=== PATIENT | male | born 1955 | race Asian ===

== ENCOUNTER 2017-04-17 23:50 | Inpatient (IN) | payer MEDICAID ==
[~2017-04-17] VITALS: Ht 170.2 cm; Wt 64.4 kg
[2017-04-18 01:46] LABS: Hematocrit 37.2 % (41.0-53.0); Hemoglobin 12.4 g/dL (13.5-17.5); Mean Corpuscular Hemoglobin 28.6 pg (28.0-32.0); Mean Corpuscular Hgb Conc. 33.4 g/dL (32.0-36.0); Mean Corpuscular Volume 85.5 fL (80.0-100.0); Mean Platelet Volume 7.6 fL (6.9-10.8); Platelet Count (auto) 189 10^3/uL (140-450); Red Cell Distribution Width 14.4 % (11.8-14.3); White Blood Cell 2.3 10^3/uL (4.4-10.8)
[2017-04-18 02:02] LABS: Albumin 2.8 g/dL (3.4-5.0); Anion Gap 6 (5-15); Aspartate Aminotransferase 30 U/L (15-37); BUN/Creatinine Ratio 27.3; Blood Urea Nitrogen 59 mg/dL (7-18); Calcium 12.9 mg/dL (8.5-10.1); Carbon Dioxide 27 mmol/L (21-32); Chloride 98 mmol/L (98-107); GFR African American 40 mL/min; GFR Non-African American 33 mL/min; Glucose 152 mg/dL (74-106); Potassium 3.8 mmol/L (3.5-5.1); Sodium 131 mmol/L (136-145)
[2017-04-18 02:04] LABS: Metamyelocytes % 0; Promyelocytes % 0; Reactive Lymphocytes 0
[2017-04-18 02:07] LABS: Alkaline Phosphatase 78 U/L (45-117); Bilirubin, Total 0.5 mg/dL (0.2-1.0); Total Protein 5.8 g/dL (6.4-8.2)
[2017-04-18] MEDS ORDERED: ONDANSETRON HCL 4 MG/2 ML VIAL IV ONE (02:15)
[2017-04-18] MEDS ORDERED: SODIUM CHLORIDE 0.9% 1,000 ML IV ONE (02:15)
[2017-04-18 02:38] LABS: Urine Bilirubin Negative (Negative); Urine Blood 1+ /uL (Negative); Urine Color Yellow (Yellow); Urine Glucose Normal (Normal); Urine Ketone Negative (Negative); Urine Nitrite Negative (Negative); Urine RBC <1 /hpf (0 - 3); Urine Urobilinogen Normal (Negative); Urine pH 5.5 (5.0-8.0)
[2017-04-18 02:58] LABS: Myelocytes % 2; Platelet Estimate Adequate; RBC Morphology Normal
[2017-04-18] MEDS ORDERED: HYDROcodone-ACET 5/325MG TAB PO PRN (05:45)
[2017-04-18] MEDS ORDERED: DEXTROSE (50%) 50ML SYRG IV PRN (05:45)
[2017-04-18] MEDS: SODIUM CHLORIDE 0.9% 1,000 ML IV SCH (05:45)
[2017-04-18] MEDS ORDERED: ONDANSETRON HCL 4 MG/2 ML VIAL IV PRN (05:45)
[2017-04-18] MEDS ORDERED: TEMAZEPAM 15 MG CAP PO PRN (05:45)
[2017-04-18] MEDS ORDERED: ACETAMINOPHEN 325 MG TAB PO PRN (05:45)
[2017-04-18] MEDS: InsuLIN REG 1unit/0.01ml Soln (100units/ml) SC SCH ×3 (06:00→18:07)
[2017-04-18] MEDS: ACCU-CHEK COMFORT CURVE STRIP VI SCH ×3 (06:00→18:07)
[2017-04-18 12:00] VITALS: BP 119/85
[2017-04-18] MEDS ORDERED: PNEUMOCOCCAL VACC POLYS 25 MCG/0.5 ML VIAL IM ONE (12:30)
[2017-04-18] MEDS ORDERED: INFLUENZA QUAD 2017-2018 0.5 ML SYRG IM ONE (12:30)
[2017-04-18 12:55] VITALS: BP 124/78
[2017-04-18 14:27] LABS: INR 1.01 (0.9-1.15)
[2017-04-18] MEDS: PANTOPRAZOLE 40 MG TAB PO SCH (14:58)
[2017-04-18] MEDS: ENOXAPARIN SOD 40 MG/0.4 ML SYRINGE SC SCH (14:59)
[2017-04-18 17:00] VITALS: BP 127/75
[2017-04-18 22:00] VITALS: BP 115/69
[2017-04-19] MEDS: ACCU-CHEK COMFORT CURVE STRIP VI SCH ×5 (00:10→23:37)
[2017-04-19 05:00] VITALS: BP 129/84
[2017-04-19] MEDS: SODIUM CHLORIDE 0.9% 1,000 ML IV SCH ×2 (05:16→08:53)
[2017-04-19] MEDS: HYDROmorphone HCL 2 MG/ML VL IV PRN ×2 (05:25→15:25)
[2017-04-19] MEDS: InsuLIN REG 1unit/0.01ml Soln (100units/ml) SC SCH ×5 (05:49→23:37)
[2017-04-19 06:44] LABS: Hematocrit 33.2 % (41.0-53.0); Hemoglobin 11.4 g/dL (13.5-17.5); Mean Corpuscular Hemoglobin 29.4 pg (28.0-32.0); Mean Corpuscular Hgb Conc. 34.4 g/dL (32.0-36.0); Mean Corpuscular Volume 85.5 fL (80.0-100.0); Mean Platelet Volume 7.6 fL (6.9-10.8); Platelet Count (auto) 188 10^3/uL (140-450); Red Cell Distribution Width 14.2 % (11.8-14.3); White Blood Cell 3.6 10^3/uL (4.4-10.8)
[2017-04-19 06:51] LABS: Albumin 2.3 g/dL (3.4-5.0); Calcium 11.7 mg/dL (8.5-10.1); Potassium 3.9 mmol/L (3.5-5.1)
[2017-04-19 06:53] LABS: Bilirubin, Total 0.5 mg/dL (0.2-1.0); Metamyelocytes % 0; Myelocytes % 0; Promyelocytes % 0; Reactive Lymphocytes 0
[2017-04-19 08:00] VITALS: BP 115/74
[2017-04-19 09:00] VITALS: BP 115/74
[2017-04-19] MEDS: PANTOPRAZOLE 40 MG TAB PO SCH (10:12)
[2017-04-19] MEDS: ENOXAPARIN SOD 40 MG/0.4 ML SYRINGE SC SCH (10:12)
[2017-04-19 12:46] LABS: Platelet Estimate Adequate
[2017-04-19 13:00] VITALS: BP 133/78
[2017-04-19 17:00] VITALS: BP 133/77
[2017-04-19] MEDS: Boost Glucose Control 8 Ounces PO SCH (22:00)
[2017-04-19 22:16] VITALS: BP 137/75
[2017-04-19] MEDS ORDERED: CLOP75TA28 PO (23:38)
[2017-04-20 05:28] VITALS: BP 124/76
[2017-04-20] MEDS: HYDROmorphone HCL 2 MG/ML VL IV PRN ×2 (05:35→16:16)
[2017-04-20] MEDS: InsuLIN REG 1unit/0.01ml Soln (100units/ml) SC SCH ×3 (05:35→18:00)
[2017-04-20] MEDS: SODIUM CHLORIDE 0.9% 1,000 ML IV SCH ×2 (05:35→11:23)
[2017-04-20] MEDS: ACCU-CHEK COMFORT CURVE STRIP VI SCH ×3 (05:35→18:22)
[2017-04-20 05:51] LABS: Hematocrit 33.7 % (41.0-53.0); Hemoglobin 11.3 g/dL (13.5-17.5); Mean Corpuscular Hemoglobin 28.5 pg (28.0-32.0); Mean Corpuscular Hgb Conc. 33.5 g/dL (32.0-36.0); Mean Corpuscular Volume 85.2 fL (80.0-100.0); Mean Platelet Volume 6.9 fL (6.9-10.8); Platelet Count (auto) 194 10^3/uL (140-450); Red Cell Distribution Width 14.5 % (11.8-14.3); White Blood Cell 3.7 10^3/uL (4.4-10.8)
[2017-04-20 05:57] LABS: Metamyelocytes % 0; Myelocytes % 0; Promyelocytes % 0; Reactive Lymphocytes 0
[2017-04-20 06:04] LABS: INR 0.99 (0.9-1.15); Prothrombin Time 10.8 sec (9.37-12.3)
[2017-04-20 06:19] LABS: Albumin 2.4 g/dL (3.4-5.0); BUN/Creatinine Ratio 24.3; Bilirubin, Total 0.5 mg/dL (0.2-1.0); Calcium 12.1 mg/dL (8.5-10.1); Magnesium 2.1 mg/dL (1.6-2.6); Total Protein 5.4 g/dL (6.4-8.2)
[2017-04-20 08:00] VITALS: BP 129/80
[2017-04-20 08:22] LABS: Large Platelets FEW; Platelet Estimate Adequate
[2017-04-20 09:00] VITALS: BP 129/80
[2017-04-20] MEDS: Boost Glucose Control 8 Ounces PO SCH ×2 (10:00→21:59)
[2017-04-20] MEDS: PANTOPRAZOLE 40 MG TAB PO SCH (11:23)
[2017-04-20] MEDS: ENOXAPARIN SOD 40 MG/0.4 ML SYRINGE SC SCH (11:23)
[2017-04-20 13:00] VITALS: BP 125/78
[2017-04-20 17:00] VITALS: BP 125/81
[2017-04-20 21:25] VITALS: BP 129/80
[2017-04-21] MEDS: ACCU-CHEK COMFORT CURVE STRIP VI SCH ×5 (00:12→23:51)
[2017-04-21] MEDS: HYDROmorphone HCL 2 MG/ML VL IV PRN ×2 (03:27→16:08)
[2017-04-21 05:00] VITALS: BP 131/79
[2017-04-21] MEDS: InsuLIN REG 1unit/0.01ml Soln (100units/ml) SC SCH ×5 (05:44→23:51)
[2017-04-21 06:10] LABS: INR 0.98 (0.9-1.15); Prothrombin Time 10.7 sec (9.37-12.3)
[2017-04-21 06:18] LABS: Hematocrit 32.4 % (41.0-53.0); Hemoglobin 11.2 g/dL (13.5-17.5); Mean Corpuscular Hemoglobin 29.2 pg (28.0-32.0); Mean Corpuscular Hgb Conc. 34.5 g/dL (32.0-36.0); Mean Corpuscular Volume 84.7 fL (80.0-100.0); Mean Platelet Volume 7.5 fL (6.9-10.8); Platelet Count (auto) 197 10^3/uL (140-450); Red Cell Distribution Width 14.8 % (11.8-14.3); White Blood Cell 2.2 10^3/uL (4.4-10.8)
[2017-04-21 06:30] LABS: Metamyelocytes % 0; Myelocytes % 0; Promyelocytes % 0; Reactive Lymphocytes 0
[2017-04-21 06:36] LABS: Albumin 2.4 g/dL (3.4-5.0); BUN/Creatinine Ratio 21.8; Bilirubin, Total 0.4 mg/dL (0.2-1.0); Magnesium 2.1 mg/dL (1.6-2.6); Potassium 3.8 mmol/L (3.5-5.1); Total Protein 5.4 g/dL (6.4-8.2)
[2017-04-21 07:57] LABS: Platelet Estimate Adequate
[2017-04-21 08:00] VITALS: BP 134/87
[2017-04-21 09:00] VITALS: BP 134/87
[2017-04-21] MEDS: ENOXAPARIN SOD 40 MG/0.4 ML SYRINGE SC SCH (10:00)
[2017-04-21] MEDS: Boost Glucose Control 8 Ounces PO SCH ×2 (10:00→22:29)
[2017-04-21] MEDS ORDERED: DIPHENOXYLATE W/ATROPINE 2.5 MG TAB PO PRN (10:45)
[2017-04-21] MEDS: SODIUM CHLORIDE 0.9% 1,000 ML IV SCH ×2 (10:56→13:53)
[2017-04-21] MEDS: PANTOPRAZOLE 40 MG TAB PO SCH (10:56)
[2017-04-21 13:00] VITALS: BP 139/89
[2017-04-21] MEDS ORDERED: HYDROmorphone HCL 2 MG/ML VL IV PRN (16:45)
[2017-04-21 17:00] VITALS: BP 138/86
[2017-04-21 22:00] VITALS: BP 119/75
[2017-04-22] MEDS: SODIUM CHLORIDE 0.9% 1,000 ML IV SCH ×2 (03:05→16:49)
[2017-04-22 05:00] VITALS: BP 128/83
[2017-04-22] MEDS: InsuLIN REG 1unit/0.01ml Soln (100units/ml) SC SCH ×3 (05:27→18:00)
[2017-04-22] MEDS: ACCU-CHEK COMFORT CURVE STRIP VI SCH ×3 (05:27→18:07)
[2017-04-22] MEDS: Boost Glucose Control 8 Ounces PO SCH ×2 (08:50→21:33)
[2017-04-22 09:00] VITALS: BP_SYST 123; BP_SYST 157; BP_DIAS 53; BP_DIAS 70
[2017-04-22] MEDS: ENOXAPARIN SOD 40 MG/0.4 ML SYRINGE SC SCH (10:00)
[2017-04-22] MEDS: PANTOPRAZOLE 40 MG TAB PO SCH (10:00)
[2017-04-22 14:56] VITALS: BP 128/75
[2017-04-22] MEDS: HYDROcodone-ACET 5/325MG TAB PO PRN ×2 (15:34→21:34)
[2017-04-22 17:36] VITALS: BP 122/76
[2017-04-22] MEDS ORDERED: ASPirin-EC 81 mg tab PO ONE (17:45)
[2017-04-22] MEDS: ATORVASTATIN 20 MG TAB PO SCH (21:33)
[2017-04-22 22:00] VITALS: BP 118/73
[2017-04-23] MEDS: ACCU-CHEK COMFORT CURVE STRIP VI SCH ×4 (00:23→18:40)
[2017-04-23] MEDS: HYDROcodone-ACET 5/325MG TAB PO PRN ×4 (03:52→22:10)
[2017-04-23] MEDS: InsuLIN REG 1unit/0.01ml Soln (100units/ml) SC SCH ×4 (06:00→18:40)
[2017-04-23 06:16] VITALS: BP 108/68
[2017-04-23 06:32] LABS: Cholesterol 160 mg/dL (< 200); HDL Cholesterol 27 mg/dL (40-59); LDL Cholesterol 109 mg/dL (< 100); Triglycerides 180 mg/dL (< 150)
[2017-04-23] MEDS: SODIUM CHLORIDE 0.9% 1,000 ML IV SCH ×2 (07:16→22:40)
[2017-04-23 08:06] VITALS: BP 108/68
[2017-04-23 09:00] VITALS: BP 107/69
[2017-04-23] MEDS: Boost Glucose Control 8 Ounces PO SCH ×2 (09:54→22:27)
[2017-04-23] MEDS: ENOXAPARIN SOD 40 MG/0.4 ML SYRINGE SC SCH (09:58)
[2017-04-23] MEDS: PANTOPRAZOLE 40 MG TAB PO SCH (09:59)
[2017-04-23] MEDS: ASPirin-EC 81 mg tab PO SCH (09:59)
[2017-04-23 13:00] VITALS: BP 108/68
[2017-04-23 17:00] VITALS: BP 123/71
[2017-04-23] MEDS: ATORVASTATIN 20 MG TAB PO SCH (22:27)
[2017-04-24] MEDS: ACCU-CHEK COMFORT CURVE STRIP VI SCH ×5 (00:08→23:20)
[2017-04-24] MEDS: HYDROcodone-ACET 5/325MG TAB PO PRN ×3 (04:40→23:21)
[2017-04-24] MEDS: InsuLIN REG 1unit/0.01ml Soln (100units/ml) SC SCH ×5 (05:57→23:20)
[2017-04-24] MEDS: SODIUM CHLORIDE 0.9% 1,000 ML IV SCH ×2 (08:59→21:17)
[2017-04-24 09:00] VITALS: BP 128/68
[2017-04-24] MEDS: ENOXAPARIN SOD 40 MG/0.4 ML SYRINGE SC SCH (10:00)
[2017-04-24] MEDS: PANTOPRAZOLE 40 MG TAB PO SCH (10:00)
[2017-04-24] MEDS: ASPirin-EC 81 mg tab PO SCH (10:00)
[2017-04-24] MEDS: Boost Glucose Control 8 Ounces PO SCH ×2 (10:00→21:17)
[2017-04-24 11:39] VITALS: BP 128/68
[2017-04-24 13:00] VITALS: BP 124/75
[2017-04-24 17:00] VITALS: BP 131/78
[2017-04-24] MEDS: ATORVASTATIN 20 MG TAB PO SCH (21:17)
[2017-04-24 21:30] VITALS: BP 138/82
[2017-04-25 05:00] VITALS: BP 129/81
[2017-04-25] MEDS: InsuLIN REG 1unit/0.01ml Soln (100units/ml) SC SCH ×4 (06:00→23:41)
[2017-04-25] MEDS: ACCU-CHEK COMFORT CURVE STRIP VI SCH ×3 (06:06→17:35)
[2017-04-25 08:00] VITALS: BP 119/77
[2017-04-25 09:00] VITALS: BP 119/77
[2017-04-25] MEDS: ASPirin-EC 81 mg tab PO SCH (09:26)
[2017-04-25] MEDS: ENOXAPARIN SOD 40 MG/0.4 ML SYRINGE SC SCH (09:26)
[2017-04-25] MEDS: PANTOPRAZOLE 40 MG TAB PO SCH (09:26)
[2017-04-25] MEDS: Boost Glucose Control 8 Ounces PO SCH (09:26)
[2017-04-25] MEDS: SODIUM CHLORIDE 0.9% 1,000 ML IV SCH (11:17)
[2017-04-25 13:00] VITALS: BP 124/76
[2017-04-25] MEDS: HYDROcodone-ACET 5/325MG TAB PO PRN (16:39)
[2017-04-25 17:00] VITALS: BP 146/85
[2017-04-25 22:00] VITALS: BP 129/85
[2017-04-26 05:00] VITALS: BP 142/82
[2017-04-26] MEDS: HYDROcodone-ACET 5/325MG TAB PO PRN ×3 (05:51→22:04)
[2017-04-26] MEDS: InsuLIN REG 1unit/0.01ml Soln (100units/ml) SC SCH ×4 (06:20→23:52)
[2017-04-26] MEDS: ACCU-CHEK COMFORT CURVE STRIP VI SCH ×5 (06:20→23:52)
[2017-04-26 08:50] VITALS: BP 130/83
[2017-04-26] MEDS: PANTOPRAZOLE 40 MG TAB PO SCH (09:25)
[2017-04-26] MEDS: ASPirin-EC 81 mg tab PO SCH (09:25)
[2017-04-26] MEDS: ENOXAPARIN SOD 40 MG/0.4 ML SYRINGE SC SCH (09:28)
[2017-04-26 13:08] VITALS: BP 132/81
[2017-04-26 16:58] VITALS: BP 138/84
[2017-04-26] MEDS: Boost Glucose Control 8 Ounces PO SCH (17:58)
[2017-04-26 22:05] VITALS: BP 129/83
[2017-04-27 04:30] VITALS: BP 136/82
[2017-04-27 05:24] LABS: Hematocrit 33.1 % (41.0-53.0); Hemoglobin 11.4 g/dL (13.5-17.5); Mean Corpuscular Hgb Conc. 34.4 g/dL (32.0-36.0); Mean Corpuscular Volume 84.4 fL (80.0-100.0); Mean Platelet Volume 7.1 fL (6.9-10.8); Platelet Count (auto) 284 10^3/uL (140-450); Red Cell Distribution Width 14.3 % (11.8-14.3); White Blood Cell 5.9 10^3/uL (4.4-10.8)
[2017-04-27 05:29] LABS: Metamyelocytes % 0; Myelocytes % 0; Promyelocytes % 0; Reactive Lymphocytes 0
[2017-04-27 05:49] LABS: Potassium 4.2 mmol/L (3.5-5.1)
[2017-04-27 06:00] LABS: Calcium 14.3 mg/dL (8.5-10.1)
[2017-04-27] MEDS: InsuLIN REG 1unit/0.01ml Soln (100units/ml) SC SCH ×3 (06:30→18:00)
[2017-04-27] MEDS: ACCU-CHEK COMFORT CURVE STRIP VI SCH ×3 (06:30→18:27)
[2017-04-27 06:57] LABS: Platelet Estimate Adequate
[2017-04-27] MEDS ORDERED: FUROSEMIDE 40 MG/4 ML VIAL IV ONE (07:00)
[2017-04-27] MEDS ORDERED: SODIUM CHLORIDE 0.9% 1,000 ML IV ONE ×2 (07:00→18:30)
[2017-04-27] MEDS ORDERED: PAMIDRONATE DISODIUM 90 MG in SOD CHL 0.45% 1,000 ML IV ONE ×3 (07:00→12:00)
[2017-04-27 10:09] VITALS: BP 148/81
[2017-04-27] MEDS: ASPirin-EC 81 mg tab PO SCH (10:42)
[2017-04-27] MEDS: ENOXAPARIN SOD 40 MG/0.4 ML SYRINGE SC SCH (10:42)
[2017-04-27] MEDS: Boost Glucose Control 8 Ounces PO SCH ×2 (10:42→18:26)
[2017-04-27] MEDS: PANTOPRAZOLE 40 MG TAB PO SCH (10:42)
[2017-04-27 11:58] VITALS: BP 151/90
[2017-04-27 16:34] VITALS: BP 138/95
[2017-04-27] MEDS ORDERED: FUROSEMIDE 20 MG/2 ML VIAL IV ONE (18:30)
[2017-04-27] MEDS: HYDROcodone-ACET 5/325MG TAB PO PRN (20:09)
[2017-04-27 22:21] VITALS: BP 131/90
[2017-04-28] MEDS: ACCU-CHEK COMFORT CURVE STRIP VI SCH ×4 (01:47→18:00)
[2017-04-28 04:40] VITALS: BP 128/77
[2017-04-28] MEDS: InsuLIN REG 1unit/0.01ml Soln (100units/ml) SC SCH ×4 (06:00→18:31)
[2017-04-28] MEDS: Boost Glucose Control 8 Ounces PO SCH ×2 (08:00→18:30)
[2017-04-28] MEDS: HYDROcodone-ACET 5/325MG TAB PO PRN ×2 (08:34→12:42)
[2017-04-28 09:21] VITALS: BP 151/72
[2017-04-28] MEDS: ASPirin-EC 81 mg tab PO SCH (10:32)
[2017-04-28] MEDS: PANTOPRAZOLE 40 MG TAB PO SCH (10:32)
[2017-04-28] MEDS: methylPREDNISolone SOD SUCC 125 MG/2 ML VL IV SCH ×2 (10:32→21:58)
[2017-04-28] MEDS: ENOXAPARIN SOD 40 MG/0.4 ML SYRINGE SC SCH (10:33)
[2017-04-28 12:39] VITALS: BP 125/83
[2017-04-28 16:36] VITALS: BP 119/78
[2017-04-28 22:00] VITALS: BP 131/79
[2017-04-29] MEDS: ACCU-CHEK COMFORT CURVE STRIP VI SCH ×5 (00:21→22:03)
[2017-04-29] MEDS: InsuLIN REG 1unit/0.01ml Soln (100units/ml) SC SCH ×5 (00:25→22:02)
[2017-04-29 05:00] VITALS: BP 139/92
[2017-04-29] MEDS: Boost Glucose Control 8 Ounces PO SCH ×2 (08:00→19:43)
[2017-04-29 08:36] LABS: Basophils # (auto) 0 uL; Basophils % (auto) 0.2 % (0.0-2.0); Eosinophils # (auto) 0 uL; Hematocrit 34.9 % (41.0-53.0); Hemoglobin 11.7 g/dL (13.5-17.5); Lymphocytes # (auto) 1.5 uL; Lymphocytes % (auto) 10.1 % (10.0-50.0); Mean Corpuscular Hemoglobin 28.1 pg (28.0-32.0); Mean Corpuscular Hgb Conc. 33.6 g/dL (32.0-36.0); Mean Corpuscular Volume 83.6 fL (80.0-100.0); Mean Platelet Volume 6.8 fL (6.9-10.8); Monocytes % (auto) 13.3 % (0.0-12.0); Neutrophils # (auto) 11.7 uL; Neutrophils % (auto) 76.4 % (37.0-80.0); Nucleated Red Blood Cells % 0.1 %; Platelet Count (auto) 351 10^3/uL (140-450); Red Cell Distribution Width 14.8 % (11.8-14.3); White Blood Cell 15.3 10^3/uL (4.4-10.8)
[2017-04-29 08:56] LABS: Potassium 4.6 mmol/L (3.5-5.1)
[2017-04-29 08:57] LABS: Albumin 2.7 g/dL (3.4-5.0); BUN/Creatinine Ratio 21.6; Bilirubin, Total 0.4 mg/dL (0.2-1.0); Total Protein 6.6 g/dL (6.4-8.2)
[2017-04-29 09:04] LABS: Calcium 13.6 mg/dL (8.5-10.1)
[2017-04-29 09:07] VITALS: BP 136/91
[2017-04-29] MEDS: ASPirin-EC 81 mg tab PO SCH (10:00)
[2017-04-29] MEDS: PANTOPRAZOLE 40 MG TAB PO SCH (10:00)
[2017-04-29] MEDS: ENOXAPARIN SOD 40 MG/0.4 ML SYRINGE SC SCH (10:01)
[2017-04-29] MEDS: methylPREDNISolone SOD SUCC 125 MG/2 ML VL IV SCH ×2 (10:01→22:02)
[2017-04-29 12:30] VITALS: BP 132/81
[2017-04-29 16:06] VITALS: BP 129/87
[2017-04-29 22:00] VITALS: BP 131/81
[2017-04-30 05:46] VITALS: BP 130/72
[2017-04-30 05:47] LABS: Hematocrit 30.5 % (41.0-53.0); Hemoglobin 10.4 g/dL (13.5-17.5); Mean Corpuscular Hemoglobin 28.4 pg (28.0-32.0); Mean Corpuscular Volume 83.5 fL (80.0-100.0); Mean Platelet Volume 6.8 fL (6.9-10.8); Platelet Count (auto) 292 10^3/uL (140-450); Red Cell Distribution Width 14.5 % (11.8-14.3); White Blood Cell 8.2 10^3/uL (4.4-10.8)
[2017-04-30 05:53] LABS: Metamyelocytes % 0; Myelocytes % 0; Promyelocytes % 0; Reactive Lymphocytes 0
[2017-04-30 06:07] LABS: Hypersegmented Neutrophils Present
[2017-04-30 06:09] LABS: Platelet Estimate Adequate; RBC Morphology Normal
[2017-04-30] MEDS: ACCU-CHEK COMFORT CURVE STRIP VI SCH ×4 (06:22→22:57)
[2017-04-30] MEDS: InsuLIN REG 1unit/0.01ml Soln (100units/ml) SC SCH ×4 (06:22→22:57)
[2017-04-30 09:00] VITALS: BP 130/77
[2017-04-30] MEDS: PANTOPRAZOLE 40 MG TAB PO SCH (09:27)
[2017-04-30] MEDS: methylPREDNISolone SOD SUCC 125 MG/2 ML VL IV SCH ×2 (09:27→22:37)
[2017-04-30] MEDS: ENOXAPARIN SOD 40 MG/0.4 ML SYRINGE SC SCH (09:27)
[2017-04-30] MEDS: HYDROcodone-ACET 5/325MG TAB PO PRN ×2 (09:27→15:37)
[2017-04-30] MEDS: ASPirin-EC 81 mg tab PO SCH (09:28)
[2017-04-30] MEDS: Boost Glucose Control 8 Ounces PO SCH ×2 (12:14→18:42)
[2017-04-30 13:36] VITALS: BP 124/81
[2017-04-30 17:08] VITALS: BP 136/86
[2017-04-30 21:40] VITALS: BP 123/79
[2017-05-01 05:25] VITALS: BP 122/72
[2017-05-01 06:11] LABS: Hematocrit 31.9 % (41.0-53.0); Mean Corpuscular Hemoglobin 28.9 pg (28.0-32.0); Mean Corpuscular Hgb Conc. 34.4 g/dL (32.0-36.0); Mean Corpuscular Volume 84.1 fL (80.0-100.0); Mean Platelet Volume 6.9 fL (6.9-10.8); Platelet Count (auto) 303 10^3/uL (140-450); Red Cell Distribution Width 14.7 % (11.8-14.3)
[2017-05-01 06:24] LABS: Metamyelocytes % 0; Myelocytes % 0; Promyelocytes % 0; Reactive Lymphocytes 0
[2017-05-01] MEDS: InsuLIN REG 1unit/0.01ml Soln (100units/ml) SC SCH ×4 (06:30→22:09)
[2017-05-01] MEDS: ACCU-CHEK COMFORT CURVE STRIP VI SCH ×4 (06:30→22:10)
[2017-05-01 06:53] LABS: Albumin 2.5 g/dL (3.4-5.0); BUN/Creatinine Ratio 32.9; Bilirubin, Total 0.3 mg/dL (0.2-1.0); Calcium 10.8 mg/dL (8.5-10.1); Potassium 4.9 mmol/L (3.5-5.1); Total Protein 5.8 g/dL (6.4-8.2)
[2017-05-01 07:02] LABS: Platelet Estimate Adequate; RBC Morphology Normal
[2017-05-01] MEDS: Boost Glucose Control 8 Ounces PO SCH ×2 (08:00→18:00)
[2017-05-01 09:07] VITALS: BP 102/44
[2017-05-01] MEDS: ASPirin-EC 81 mg tab PO SCH (10:05)
[2017-05-01] MEDS: PANTOPRAZOLE 40 MG TAB PO SCH (10:05)
[2017-05-01] MEDS: ENOXAPARIN SOD 40 MG/0.4 ML SYRINGE SC SCH (10:05)
[2017-05-01] MEDS: methylPREDNISolone SOD SUCC 125 MG/2 ML VL IV SCH ×2 (10:05→22:09)
[2017-05-01 13:00] VITALS: BP 126/86
[2017-05-01] MEDS: HYDROcodone-ACET 5/325MG TAB PO PRN (14:22)
[2017-05-01 17:02] VITALS: BP 132/82
[2017-05-01 21:55] VITALS: BP 122/75
[2017-05-02 05:28] VITALS: BP 122/78
[2017-05-02 06:07] LABS: Hematocrit 30.4 % (41.0-53.0); Hemoglobin 10.5 g/dL (13.5-17.5); Mean Corpuscular Hemoglobin 29.1 pg (28.0-32.0); Mean Corpuscular Hgb Conc. 34.6 g/dL (32.0-36.0); Mean Corpuscular Volume 84.1 fL (80.0-100.0); Mean Platelet Volume 6.9 fL (6.9-10.8); Platelet Count (auto) 285 10^3/uL (140-450); Red Cell Distribution Width 14.7 % (11.8-14.3); White Blood Cell 8.5 10^3/uL (4.4-10.8)
[2017-05-02 06:19] LABS: Metamyelocytes % 0; Myelocytes % 0; Promyelocytes % 0; Reactive Lymphocytes 0
[2017-05-02 06:20] LABS: INR 1.01 (0.9-1.15)
[2017-05-02] MEDS: ACCU-CHEK COMFORT CURVE STRIP VI SCH ×4 (06:21→23:48)
[2017-05-02] MEDS: InsuLIN REG 1unit/0.01ml Soln (100units/ml) SC SCH ×4 (06:21→23:55)
[2017-05-02 06:34] LABS: Albumin 2.3 g/dL (3.4-5.0); Magnesium 2.4 mg/dL (1.6-2.6); Potassium 4.9 mmol/L (3.5-5.1)
[2017-05-02 06:53] LABS: Bilirubin, Total 0.3 mg/dL (0.2-1.0); Total Protein 5.4 g/dL (6.4-8.2)
[2017-05-02] MEDS: Boost Glucose Control 8 Ounces PO SCH ×2 (08:00→18:00)
[2017-05-02 09:05] VITALS: BP 113/71
[2017-05-02] MEDS ORDERED: DIPHENOXYLATE W/ATROPINE 2.5 MG TAB PO PRN (10:00)
[2017-05-02] MEDS ORDERED: ONDANSETRON HCL 4 MG/2 ML VIAL IV PRN (10:00)
[2017-05-02] MEDS ORDERED: DEXTROSE (50%) 50ML SYRG IV PRN (10:00)
[2017-05-02 10:09] LABS: Platelet Estimate Adequate; RBC Morphology Normal
[2017-05-02] MEDS: ENOXAPARIN SOD 30 MG/0.3 ML SYRINGE SC SCH (10:17)
[2017-05-02] MEDS: methylPREDNISolone SOD SUCC 125 MG/2 ML VL IV SCH ×2 (10:17→21:02)
[2017-05-02] MEDS: PANTOPRAZOLE 40 MG TAB PO SCH (10:17)
[2017-05-02] MEDS: ASPirin-EC 81 mg tab PO SCH (10:18)
[2017-05-02] MEDS: SODIUM CHLORIDE 0.9% 1,000 ML IV SCH (10:23)
[2017-05-02 12:01] VITALS: BP 120/75
[2017-05-02 16:53] VITALS: BP 136/81
[2017-05-02 21:51] VITALS: BP 123/78
[2017-05-03] VITALS (7 sets, daily range): BP systolic 120–152; BP diastolic 77–88
[2017-05-03] MEDS: SODIUM CHLORIDE 0.9% 1,000 ML IV SCH ×2 (05:05→18:10)
[2017-05-03 05:43] LABS: Calcium 9.2 mg/dL (8.5-10.1); Potassium 4.3 mmol/L (3.5-5.1)
[2017-05-03 05:45] LABS: BUN/Creatinine Ratio 30.2
[2017-05-03] MEDS: ACCU-CHEK COMFORT CURVE STRIP VI SCH ×4 (05:53→23:28)
[2017-05-03] MEDS: InsuLIN REG 1unit/0.01ml Soln (100units/ml) SC SCH ×4 (06:16→23:47)
[2017-05-03] MEDS: Boost Glucose Control 8 Ounces PO SCH ×2 (09:24→18:10)
[2017-05-03] MEDS: methylPREDNISolone SOD SUCC 125 MG/2 ML VL IV SCH ×2 (09:24→21:40)
[2017-05-03] MEDS: ENOXAPARIN SOD 30 MG/0.3 ML SYRINGE SC SCH (09:24)
[2017-05-03] MEDS: PANTOPRAZOLE 40 MG TAB PO SCH (09:24)
[2017-05-03] MEDS: ASPirin-EC 81 mg tab PO SCH (09:24)
[2017-05-03] MEDS ORDERED: DOCUSATE SOD 100 MG CAP PO PRN (22:30)
[2017-05-04] VITALS (7 sets, daily range): BP systolic 122–135; BP diastolic 81–85
[2017-05-04] MEDS: ACCU-CHEK COMFORT CURVE STRIP VI SCH ×3 (05:34→17:30)
[2017-05-04] MEDS: InsuLIN REG 1unit/0.01ml Soln (100units/ml) SC SCH ×4 (05:34→23:59)
[2017-05-04] MEDS: Boost Glucose Control 8 Ounces PO SCH ×2 (09:00→17:30)
[2017-05-04] MEDS: ASPirin-EC 81 mg tab PO SCH (09:54)
[2017-05-04] MEDS: ENOXAPARIN SOD 30 MG/0.3 ML SYRINGE SC SCH (09:54)
[2017-05-04] MEDS: PANTOPRAZOLE 40 MG TAB PO SCH (09:54)
[2017-05-04] MEDS: methylPREDNISolone SOD SUCC 125 MG/2 ML VL IV SCH ×2 (09:55→22:05)
[2017-05-04] MEDS: SODIUM CHLORIDE 0.9% 1,000 ML IV SCH (11:38)
[2017-05-04] MEDS: HYDROcodone-ACET 5/325MG TAB PO PRN (14:42)
[2017-05-05] MEDS: SODIUM CHLORIDE 0.9% 1,000 ML IV SCH (04:24)
[2017-05-05 05:00] VITALS: BP 123/77
[2017-05-05] MEDS: InsuLIN REG 1unit/0.01ml Soln (100units/ml) SC SCH ×4 (06:07→23:41)
[2017-05-05] MEDS: ACCU-CHEK COMFORT CURVE STRIP VI SCH ×5 (06:08→23:36)
[2017-05-05 08:21] VITALS: BP 133/82
[2017-05-05] MEDS: PANTOPRAZOLE 40 MG TAB PO SCH (09:35)
[2017-05-05] MEDS: ASPirin-EC 81 mg tab PO SCH (09:35)
[2017-05-05] MEDS: ENOXAPARIN SOD 30 MG/0.3 ML SYRINGE SC SCH (09:35)
[2017-05-05] MEDS: Boost Glucose Control 8 Ounces PO SCH ×2 (09:36→17:11)
[2017-05-05] MEDS: methylPREDNISolone SOD SUCC 125 MG/2 ML VL IV SCH (09:36)
[2017-05-05 10:06] LABS: BUN/Creatinine Ratio 32.6; Calcium 8.5 mg/dL (8.5-10.1); Potassium 4.4 mmol/L (3.5-5.1)
[2017-05-05 11:54] VITALS: BP 126/88
[2017-05-05] MEDS: HYDROcodone-ACET 5/325MG TAB PO PRN (15:50)
[2017-05-05 16:28] VITALS: BP 148/96
[2017-05-05 21:52] VITALS: BP 117/78
[2017-05-06 05:00] VITALS: BP 136/94
[2017-05-06] MEDS: ACCU-CHEK COMFORT CURVE STRIP VI SCH ×3 (06:26→17:32)
[2017-05-06] MEDS: InsuLIN REG 1unit/0.01ml Soln (100units/ml) SC SCH ×3 (06:41→17:32)
[2017-05-06 06:50] LABS: BUN/Creatinine Ratio 31.8; Potassium 4.3 mmol/L (3.5-5.1); Uric Acid 8.5 mg/dL (3.5-7.2)
[2017-05-06 08:00] VITALS: BP 138/95
[2017-05-06] MEDS: Boost Glucose Control 8 Ounces PO SCH ×2 (08:00→17:32)
[2017-05-06] MEDS: PANTOPRAZOLE 40 MG TAB PO SCH (11:19)
[2017-05-06] MEDS: predniSONE 20 MG TAB PO SCH (11:19)
[2017-05-06] MEDS: ENOXAPARIN SOD 30 MG/0.3 ML SYRINGE SC SCH (11:19)
[2017-05-06] MEDS: ASPirin-EC 81 mg tab PO SCH (11:20)
[2017-05-06] MEDS: NYSTATIN (MOUTH-THROAT) 500,000 UNITS/5 ML SUSP MT SCH ×3 (11:20→21:49)
[2017-05-06 12:39] VITALS: BP 144/82
[2017-05-06 16:49] VITALS: BP 158/101
[2017-05-06 20:00] VITALS: BP 138/93
[2017-05-06 22:00] VITALS: BP 138/93
[2017-05-07] MEDS: ACCU-CHEK COMFORT CURVE STRIP VI SCH ×5 (00:19→23:42)
[2017-05-07] MEDS: InsuLIN REG 1unit/0.01ml Soln (100units/ml) SC SCH ×4 (00:21→17:14)
[2017-05-07 05:17] VITALS: BP 137/85
[2017-05-07] MEDS: NYSTATIN (MOUTH-THROAT) 500,000 UNITS/5 ML SUSP MT SCH ×4 (06:18→21:34)
[2017-05-07 08:00] VITALS: BP 138/95
[2017-05-07] MEDS: Boost Glucose Control 8 Ounces PO SCH ×2 (08:00→17:23)
[2017-05-07 09:01] VITALS: BP 136/81
[2017-05-07] MEDS: predniSONE 20 MG TAB PO SCH (10:23)
[2017-05-07] MEDS: PANTOPRAZOLE 40 MG TAB PO SCH (10:24)
[2017-05-07] MEDS: ENOXAPARIN SOD 30 MG/0.3 ML SYRINGE SC SCH (10:24)
[2017-05-07] MEDS: ALLOPURINOL 100 MG TAB PO SCH (10:24)
[2017-05-07] MEDS: HYDROcodone-ACET 5/325MG TAB PO PRN (10:25)
[2017-05-07] MEDS: ASPirin-EC 81 mg tab PO SCH (10:26)
[2017-05-07 13:00] VITALS: BP 148/97
[2017-05-07 17:00] VITALS: BP 144/78
[2017-05-07] MEDS: ATORVASTATIN 20 MG TAB PO SCH (21:34)
[2017-05-07 21:50] VITALS: BP 152/85
[2017-05-08] MEDS: InsuLIN REG 1unit/0.01ml Soln (100units/ml) SC SCH ×5 (00:07→23:47)
[2017-05-08 05:00] VITALS: BP 137/86
[2017-05-08] MEDS: ACCU-CHEK COMFORT CURVE STRIP VI SCH ×4 (05:55→23:44)
[2017-05-08] MEDS: NYSTATIN (MOUTH-THROAT) 500,000 UNITS/5 ML SUSP MT SCH ×4 (05:56→21:19)
[2017-05-08 08:00] VITALS: BP 144/88
[2017-05-08] MEDS: Boost Glucose Control 8 Ounces PO SCH ×2 (08:00→17:40)
[2017-05-08 08:07] LABS: BUN/Creatinine Ratio 31.3; Potassium 4.2 mmol/L (3.5-5.1)
[2017-05-08 09:00] VITALS: BP 144/88
[2017-05-08] MEDS: PRO-STAT 64 30ML PO SCH (10:00)
[2017-05-08] MEDS: PANTOPRAZOLE 40 MG TAB PO SCH (10:06)
[2017-05-08] MEDS: ASPirin-EC 81 mg tab PO SCH (10:06)
[2017-05-08] MEDS: ALLOPURINOL 100 MG TAB PO SCH (10:06)
[2017-05-08] MEDS: predniSONE 20 MG TAB PO SCH (10:06)
[2017-05-08] MEDS: ENOXAPARIN SOD 30 MG/0.3 ML SYRINGE SC SCH (10:07)
[2017-05-08] MEDS ORDERED: glipiZIDE 5 MG TAB PO ONE (12:45)
[2017-05-08 13:01] VITALS: BP 135/89
[2017-05-08 17:03] VITALS: BP 139/90
[2017-05-08] MEDS ORDERED: amLODIPine BESYLATE 5 MG TAB PO ONE (19:00)
[2017-05-08] MEDS: ATORVASTATIN 20 MG TAB PO SCH (21:19)
[2017-05-08 22:00] VITALS: BP 132/91
[2017-05-09] VITALS (7 sets, daily range): BP systolic 128–147; BP diastolic 86–95
[2017-05-09 05:38] LABS: Hematocrit 30.2 % (41.0-53.0); Hemoglobin 10.3 g/dL (13.5-17.5); Mean Corpuscular Hemoglobin 28.8 pg (28.0-32.0); Mean Corpuscular Hgb Conc. 34.1 g/dL (32.0-36.0); Mean Corpuscular Volume 84.5 fL (80.0-100.0); Mean Platelet Volume 7.5 fL (6.9-10.8); Platelet Count (auto) 201 10^3/uL (140-450); Red Cell Distribution Width 15.7 % (11.8-14.3); White Blood Cell 9.9 10^3/uL (4.4-10.8)
[2017-05-09] MEDS: InsuLIN REG 1unit/0.01ml Soln (100units/ml) SC SCH ×4 (05:41→23:48)
[2017-05-09] MEDS: ACCU-CHEK COMFORT CURVE STRIP VI SCH ×4 (05:41→23:59)
[2017-05-09] MEDS: NYSTATIN (MOUTH-THROAT) 500,000 UNITS/5 ML SUSP MT SCH ×4 (05:41→22:20)
[2017-05-09 05:48] LABS: Metamyelocytes % 0; Myelocytes % 0; Promyelocytes % 0; Reactive Lymphocytes 0
[2017-05-09] MEDS: glipiZIDE 5 MG TAB PO SCH (05:49)
[2017-05-09 06:04] LABS: BUN/Creatinine Ratio 30.8; Calcium 8.9 mg/dL (8.5-10.1); Potassium 4.1 mmol/L (3.5-5.1)
[2017-05-09 06:55] LABS: Hypersegmented Neutrophils Present; Platelet Estimate Adequate
[2017-05-09 06:56] LABS: RBC Morphology Normal
[2017-05-09] MEDS ORDERED: AML5T PO (10:20)
[2017-05-09] MEDS ORDERED: ASP81EC PO (10:20)
[2017-05-09] MEDS ORDERED: ALL100T PO (10:20)
[2017-05-09] MEDS ORDERED: GLIP-115 PO (10:20)
[2017-05-09] MEDS ORDERED: ATOR20TA50 PO (10:20)
[2017-05-09] MEDS: predniSONE 20 MG TAB PO SCH (11:15)
[2017-05-09] MEDS: ASPirin-EC 81 mg tab PO SCH (11:15)
[2017-05-09] MEDS: Boost Glucose Control 8 Ounces PO SCH ×2 (11:15→17:25)
[2017-05-09] MEDS: amLODIPine BESYLATE 5 MG TAB PO SCH (11:16)
[2017-05-09] MEDS: PANTOPRAZOLE 40 MG TAB PO SCH (11:16)
[2017-05-09] MEDS: ENOXAPARIN SOD 30 MG/0.3 ML SYRINGE SC SCH (11:16)
[2017-05-09] MEDS: ALLOPURINOL 100 MG TAB PO SCH (11:16)
[2017-05-09] MEDS: PRO-STAT 64 30ML PO SCH (11:49)
[2017-05-09] MEDS: ATORVASTATIN 20 MG TAB PO SCH (22:00)
[2017-05-10 05:00] VITALS: BP 128/89
[2017-05-10] MEDS: NYSTATIN (MOUTH-THROAT) 500,000 UNITS/5 ML SUSP MT SCH ×4 (06:00→21:30)
[2017-05-10] MEDS: InsuLIN REG 1unit/0.01ml Soln (100units/ml) SC SCH ×3 (06:15→18:07)
[2017-05-10] MEDS: ACCU-CHEK COMFORT CURVE STRIP VI SCH ×3 (06:15→18:07)
[2017-05-10] MEDS: glipiZIDE 5 MG TAB PO SCH (07:00)
[2017-05-10 08:00] VITALS: BP 128/86
[2017-05-10] MEDS: Boost Glucose Control 8 Ounces PO SCH ×2 (08:09→18:07)
[2017-05-10 08:10] VITALS: BP 128/86
[2017-05-10] MEDS: PRO-STAT 64 30ML PO SCH (10:00)
[2017-05-10] MEDS: ENOXAPARIN SOD 30 MG/0.3 ML SYRINGE SC SCH (10:29)
[2017-05-10] MEDS: ASPirin-EC 81 mg tab PO SCH (10:29)
[2017-05-10] MEDS: PANTOPRAZOLE 40 MG TAB PO SCH (10:29)
[2017-05-10] MEDS: amLODIPine BESYLATE 5 MG TAB PO SCH (10:30)
[2017-05-10] MEDS: ALLOPURINOL 100 MG TAB PO SCH (10:30)
[2017-05-10] MEDS: predniSONE 20 MG TAB PO SCH (10:34)
[2017-05-10 11:51] VITALS: BP 129/81
[2017-05-10 16:48] VITALS: BP 134/82
[2017-05-10] MEDS: ATORVASTATIN 20 MG TAB PO SCH (21:30)
[2017-05-10 23:35] VITALS: BP 120/79
[2017-05-11] MEDS: ACCU-CHEK COMFORT CURVE STRIP VI SCH ×4 (00:04→18:28)
[2017-05-11] MEDS: InsuLIN REG 1unit/0.01ml Soln (100units/ml) SC SCH ×4 (00:07→18:28)
[2017-05-11 05:40] VITALS: BP 136/84
[2017-05-11] MEDS: NYSTATIN (MOUTH-THROAT) 500,000 UNITS/5 ML SUSP MT SCH ×4 (05:43→21:55)
[2017-05-11] MEDS: ACETAMINOPHEN 325 MG TAB PO PRN ×2 (05:43→12:18)
[2017-05-11 05:59] LABS: Hematocrit 28.1 % (41.0-53.0); Hemoglobin 9.6 g/dL (13.5-17.5); Mean Corpuscular Hemoglobin 29.2 pg (28.0-32.0); Mean Corpuscular Hgb Conc. 34.2 g/dL (32.0-36.0); Mean Corpuscular Volume 85.5 fL (80.0-100.0); Mean Platelet Volume 7.9 fL (6.9-10.8); Platelet Count (auto) 171 10^3/uL (140-450); Red Cell Distribution Width 15.6 % (11.8-14.3); White Blood Cell 7.9 10^3/uL (4.4-10.8)
[2017-05-11 06:11] LABS: Metamyelocytes % 0; Myelocytes % 0; Promyelocytes % 0; Reactive Lymphocytes 0
[2017-05-11] MEDS: glipiZIDE 5 MG TAB PO SCH (06:14)
[2017-05-11 06:27] LABS: BUN/Creatinine Ratio 31.5; Calcium 8.9 mg/dL (8.5-10.1); Potassium 4.1 mmol/L (3.5-5.1)
[2017-05-11 08:00] VITALS: BP 136/86
[2017-05-11] MEDS: Boost Glucose Control 8 Ounces PO SCH ×2 (08:00→18:00)
[2017-05-11 09:00] VITALS: BP 134/86
[2017-05-11 09:40] LABS: Platelet Estimate Adequate; RBC Morphology Normal
[2017-05-11] MEDS: PRO-STAT 64 30ML PO SCH (10:00)
[2017-05-11] MEDS: PANTOPRAZOLE 40 MG TAB PO SCH (10:05)
[2017-05-11] MEDS: predniSONE 20 MG TAB PO SCH (10:05)
[2017-05-11] MEDS: ALLOPURINOL 100 MG TAB PO SCH (10:06)
[2017-05-11] MEDS: amLODIPine BESYLATE 5 MG TAB PO SCH (10:06)
[2017-05-11] MEDS: ASPirin-EC 81 mg tab PO SCH (10:06)
[2017-05-11] MEDS: ENOXAPARIN SOD 30 MG/0.3 ML SYRINGE SC SCH (10:06)
[2017-05-11 13:00] VITALS: BP 126/83
[2017-05-11 17:27] VITALS: BP 129/82
[2017-05-11] MEDS: HYDROcodone-ACET 5/325MG TAB PO PRN (20:41)
[2017-05-11] MEDS: ATORVASTATIN 20 MG TAB PO SCH (21:55)
[2017-05-11 22:00] VITALS: BP 141/86
[2017-05-12] MEDS: ACCU-CHEK COMFORT CURVE STRIP VI SCH ×3 (00:03→12:00)
[2017-05-12] MEDS: InsuLIN REG 1unit/0.01ml Soln (100units/ml) SC SCH ×3 (00:18→12:00)
[2017-05-12] MEDS: HYDROcodone-ACET 5/325MG TAB PO PRN (04:21)
[2017-05-12 05:00] VITALS: BP 127/81
[2017-05-12] MEDS: NYSTATIN (MOUTH-THROAT) 500,000 UNITS/5 ML SUSP MT SCH ×2 (05:58→12:00)
[2017-05-12] MEDS: glipiZIDE 5 MG TAB PO SCH (06:05)
[2017-05-12 08:00] VITALS: BP 134/82
[2017-05-12] MEDS: Boost Glucose Control 8 Ounces PO SCH (08:00)
[2017-05-12 09:00] VITALS: BP 134/82
[2017-05-12] MEDS: PRO-STAT 64 30ML PO SCH (10:00)
[2017-05-12] MEDS: ASPirin-EC 81 mg tab PO SCH (10:09)
[2017-05-12] MEDS: predniSONE 20 MG TAB PO SCH (10:09)
[2017-05-12] MEDS: amLODIPine BESYLATE 5 MG TAB PO SCH (10:10)
[2017-05-12] MEDS: ALLOPURINOL 100 MG TAB PO SCH (10:10)
[2017-05-12] MEDS: PANTOPRAZOLE 40 MG TAB PO SCH (10:10)
[2017-05-12] MEDS: ENOXAPARIN SOD 30 MG/0.3 ML SYRINGE SC SCH (10:11)
[2017-05-12 12:37] VITALS: BP 132/87
[2017-05-12 12:45] VITALS: BP 134/82
[2017-05-12 12:51] VITALS: BP 134/82
== END 2017-05-12 17:00 | disposition home health service (06) | DRG 691 ==
LOC: EDBD 23:50 → ER 23:57 → OVERFLOW 23:58 → EAST 04-18 09:14 → CENTRAL 04-18 09:20
PROVIDERS: ADMIT Nurse Practitioner; ATTEND Internal Medicine
PROC: 0JB43ZX Excision of Right Neck Subcutaneous Tissue and Fascia, Percutaneous Approach, Diagnostic (ICD-10-PCS; principal; 2017-04-18)
DX: C83.31 Diffuse large B-cell lymphoma, lymph nodes of head, face, and neck (principal); N17.0 Acute kidney failure with tubular necrosis; G93.41 Metabolic encephalopathy; J90 Pleural effusion, not elsewhere classified; E44.0 Moderate protein-calorie malnutrition; R18.8 Other ascites; C18.9 Malignant neoplasm of colon, unspecified; N18.3 Chronic kidney disease, stage 3 (moderate); E11.22 Type 2 diabetes mellitus with diabetic chronic kidney disease; E87.1 Hypo-osmolality and hyponatremia; I69.351 Hemiplegia and hemiparesis following cerebral infarction affecting right dominant side; C83.33 Diffuse large B-cell lymphoma, intra-abdominal lymph nodes; E86.0 Dehydration; I12.9 Hypertensive chronic kidney disease with stage 1 through stage 4 chronic kidney disease, or unspecified chronic kidney disease; E83.52 Hypercalcemia; E78.5 Hyperlipidemia, unspecified; D63.8 Anemia in other chronic diseases classified elsewhere; G47.10 Hypersomnia, unspecified; D72.819 Decreased white blood cell count, unspecified; R19.7 Diarrhea, unspecified; M79.631 Pain in right forearm; E79.0 Hyperuricemia without signs of inflammatory arthritis and tophaceous disease; Z59.0 Homelessness; Z79.82 Long term (current) use of aspirin; Z82.49 Family history of ischemic heart disease and other diseases of the circulatory system; Z83.3 Family history of diabetes mellitus; Z85.028 Personal history of other malignant neoplasm of stomach; Z85.038 Personal history of other malignant neoplasm of large intestine; Z68.22 Body mass index [BMI] 22.0-22.9, adult; Z23 Encounter for immunization
CPT/HCPCS: 36415; 70450; 70551; 71250; 73090; 74176; 76942; 80048; 80053; 80061; 81001; 82310; 82962; 83036; 83615; 83735; 84484; 84550; 85007; 85025; 85027; 85610; 86703; 87081; 95819; 96374; 96375; 97110; 97116; 97163; 97530; J1815; J2405